=== PATIENT | male | born 1995 | race Two or more races ===

== ENCOUNTER 2020-02-28 18:36 | Emergency (ER) | payer MEDICARE, OTHER ==
[~2020-02-28] VITALS: Ht 170.2 cm; Wt 67.7 kg
[2020-02-28 18:46] VITALS: BP 152/98
[2020-02-28] MEDS ORDERED: METH10 PO (18:54)
[2020-02-28] MEDS ORDERED: QUET100T PO (18:54)
== END 2020-02-28 20:12 | disposition left against medical advice (07) ==
LOC: EMS 18:39
DX: R10.9 Unspecified abdominal pain (principal); Z53.21 Procedure and treatment not carried out due to patient leaving prior to being seen by health care provider